=== PATIENT | male | born 1945 | race Caucasian/White ===

== ENCOUNTER 2016-08-03 09:48 | Day surgery (SDC) | payer BC ==
--- NOTE | ~2016-08-03 | EGD ---
EGD REPORT [facility] [address] [address] NAME: CHIRAG BOOGIE : [birth year] STATUS : REG [facility]#: [id number] AGE: 71 ADM/REG DATE : 08/03/16 MR#: [id number] REPORT SERV DATE: 08/03/16 DICTATED BY: ANDRES PIEDRA DATE: 08/03/16 REPORT STATUS : Draft TRANSCRIBED BY: [employer] DATE: 08/03/16 Endoscopy Center Patient Name: Chirag Boogie Date of : 1945 Attending MD: ANDRES PIEDRA MD Procedure Date No Time: 08/03/2016 Procedure: Colonoscopy Indications: High risk colon cancer surveillance: Personal history of colonic polyps Referring MD: Vince Myers MD Medicines: Monitored Anesthesia Care Complications: No immediate complications. Procedure: Pre-Anesthesia Assessment: - ASA Grade Assessment: III - A patient with severe systemic disease. After I obtained informed consent, the scope was passed under direct vision. Throughout the procedure, the patient's blood pressure, pulse, and oxygen saturations were monitored continuously. The CF [id number] was introduced through the anus and advanced to the terminal ileum, with identification of the appendiceal orifice and IC valve. The colonoscopy was performed without difficulty. The patient tolerated the procedure well. The quality of the bowel preparation was good. Findings: The digital rectal exam was normal. Pertinent negatives include no palpable rectal lesions. The terminal ileum appeared normal. A few small-mouthed diverticula were found in the sigmoid colon. Hemorrhoids were found during retroflexion and were mild. A sessile polyp was found in the cecum. The polyp was 6 mm in size. The polyp was removed with a cold biopsy forceps. Resection and retrieval were complete. A sessile polyp was found in the ascending colon. The polyp was 11 mm in size. The polyp was removed with a cold snare. Resection and retrieval were complete. A sessile polyp was found in the ascending colon. The polyp was 4 mm in size. The polyp was removed with a cold biopsy forceps. Resection and retrieval were complete. A sessile polyp was found in the descending colon. The polyp was 6 mm in size. The polyp was removed with a cold biopsy forceps. Resection and retrieval were complete. Impression: - The examined portion of the ileum was normal. EGD REPORT [address] [place]. [address] NAME: CHIRAG BOOGIE : [birth year] STATUS : REG [facility]#: [id number] AGE: 71 ADM/REG DATE : 08/03/16 MR#: [id number] REPORT SERV DATE: 08/03/16 DICTATED BY: ANDRES PIEDRA DATE: 08/03/16 REPORT STATUS : Draft TRANSCRIBED BY: [employer] DATE: 08/03/16 - Diverticulosis in the sigmoid colon. - Hemorrhoids. - One 6 mm polyp in the cecum. Resected and retrieved. - One 11 mm polyp in the ascending colon. Resected and retrieved. - One 4 mm polyp in the ascending colon. Resected and retrieved. - One 6 mm polyp in the descending colon. Resected and retrieved. Recommendation: - Patient has a contact number available for emergencies. The signs and symptoms of potential delayed complications were discussed with the patient. Return to normal activities tomorrow. Written discharge instructions were provided to the patient. - Regular diet. - Continue present medications. - Repeat colonoscopy in 3 - 5 years for surveillance based on pathology results. - Return to GI clinic PRN. - Await pathology results. Procedure Code(s): --- Professional --- 89488, Colonoscopy, flexible, proximal to splenic flexure; with removal of tumor(s), polyp(s), or other lesion(s) by snare technique 98270, 59, Colonoscopy, flexible, proximal to splenic flexure; with biopsy, single or multiple Diagnosis Code(s): --- Professional --- K64.9, Unspecified hemorrhoids K57.30, Diverticulosis of large intestine without perforation or abscess without bleeding D12.4, Benign neoplasm of descending colon D12.2, Benign neoplasm of ascending colon D12.0, Benign neoplasm of cecum Z86.010, Personal history of colonic polyps CPT copyright 2013 [employer]. All rights reserved. The codes documented in this report are preliminary and upon blog writer review may be revised to meet current compliance requirements. ANDRES PIEDRA MD 08/03/2016 11:32 AM EGD REPORT [facility] [address] [address] NAME: CHIRAG BOOGIE : [birth year] STATUS : REG [facility] PAT#: [id number] AGE: 71 ADM/REG DATE : 08/03/16 MR#: [id number] REPORT SERV DATE: 08/03/16 DICTATED BY: ANDRES PIEDRA DATE: 08/03/16 REPORT STATUS : Draft TRANSCRIBED BY: [employer] DATE: 08/03/16 This report has been signed electronically. Number of Addenda: 0 Note Initiated On: 08/03/2016 11:02 AM Scope Withdrawal Time 0 hours 11 minutes 51 seconds [address] [id number]
[~2016-08-03 09:48] MED LIST: ATEN50 PO; GLUCOSAMINEPO PO; GLUCPH PO; L20 PO; MOBIC7.5 PO; PRILO PO; SAW PALMETT1 PO; SPIRIVA INH; SPIRO25 PO; SYMBICORT 160/41 INH INH; ZOCOR20 PO
== END 2016-08-03 23:59 | disposition home or self-care (01) ==
LOC: DMU 09:48
PROVIDERS: Internal Medicine Gastroenterology
PROC: 0DBH8ZZ Excision of Cecum, Via Natural or Artificial Opening Endoscopic (ICD-10-PCS; 2016-08-03)
PROC: 0DBM8ZZ Excision of Descending Colon, Via Natural or Artificial Opening Endoscopic (ICD-10-PCS; 2016-08-03)
PROC: 0DBK8ZZ Excision of Ascending Colon, Via Natural or Artificial Opening Endoscopic (ICD-10-PCS; principal; 2016-08-03 11:30)
PROC: 0DBK8ZZ Excision of Ascending Colon, Via Natural or Artificial Opening Endoscopic (ICD-10-PCS; 2016-08-03 11:30)
DX: Z12.11 Encounter for screening for malignant neoplasm of colon (principal); D12.0 Benign neoplasm of cecum; D12.2 Benign neoplasm of ascending colon; K57.30 Diverticulosis of large intestine without perforation or abscess without bleeding; K64.9 Unspecified hemorrhoids; Z86.010 Personal history of colon polyps; J44.9 Chronic obstructive pulmonary disease, unspecified; I10 Essential (primary) hypertension; E11.9 Type 2 diabetes mellitus without complications; Z79.84 Long term (current) use of oral hypoglycemic drugs; Z79.899 Other long term (current) drug therapy
CPT/HCPCS: 82962; 88305